=== PATIENT | male | born 1990 | race Caucasian/White ===

== ENCOUNTER 2016-05-12 08:18 | Emergency (ER) | payer BC ==
[2016-05-12 08:34] VITALS: RESP 18; TEMP 98.5
[2016-05-12] MEDS ORDERED: NORMAL SALINE 10 ML SYRINGE FLUSH IVP PRN (08:43)
--- NOTE | 2016-05-12 08:52 | PDOC ---
Headache HPI - General Chief Complaint: General Medical Stated Complaint: Vomiting Date Seen by Provider: 05/12/16 Time Seen by Provider: 08:35 Source: POSITIVE: Patient Exam Limitations: POSITIVE: No limitations Nurse's Notes Reviewed & Considered: Yes - History of Present Illness Initial Comments: The patient is a 25-year-old male who presents to the emergency department with a "migraine headache". He apparently has a long-standing history of migraine headaches which started after he had a thoracic outlet syndrome surgery. He previously was treated by doctors at [place] while he was attending school there. He currently sees a neurologist in [place]. He had Botox injections on May 09. He states that this typically helps him however he usually gets migraines within several days of getting the injections. He states that he had onset of headache in the left mandaeism at approximately 1:30 this morning. This is the typical location for his headaches. He has associated nausea and vomiting and has had emesis 7 since onset of headache. He also has associated photophobia and some blurred vision in the periphery of his left eye. His current headache is typical of migraine headaches that he has had in the past. He denies any numbness or weakness in his extremities, fevers or chills or recent illness. He has taken Zomig and IM Toradol at home already without any relief. He takes propranolol 10 mg twice a day as well as Lexapro daily. In addition he is back on Topamax and is working towards the 100 mg dose and currently is taking 50 mg. - Patient Home Medications Home Medications: Home Medications Diclofenac Potassium [Cambia] 1 packet PO QD PRN 03/29/16 Frovatriptan Succinate [Frova] 1 tab PO BID PRN tab 03/29/16 Zolmitriptan [Zomig] 1 tab PO BID PRN tab 03/29/16 Escitalopram Oxalate [Lexapro] 1 tab PO DAILY tab 04/23/16 Propranolol HCl 1 tab PO BID #60 tab 04/24/16 [place], Disposable [Needle] 1 each MC PRN #30 each 04/26/16 Suvorexant [Belsomra] Sample #4 04/26/16 Syringe, Disposable, 60 ml [Syringe Bulk] 3 ml MC PRN PRN #1 box 04/26/16 Ketorolac Tromethamine [Toradol] 30 mg IJ PRN 04/28/16 Propranolol HCl 10 mg PO BID 04/28/16 Zolpidem Tartrate [Ambien] 1 tab PO QHS #15 tab 04/29/16 - Patient Allergies Allergies/Adverse Reactions: Allergies Allergy/AdvReac Type Severity Reaction Status Date / Time Horse/Equine Containing Allergy Anaphylaxis Verified 05/12/16 08:35 Products cats Allergy Anaphylaxis Uncoded 05/12/16 08:35 Past Medical History - heen HEENT History: Denies History Cardiovascular History: Denies History Respiratory History: Denies History Gastrointestinal History: Denies History Genitourinary History: Denies History Endocrine History: Denies History Musculoskeletal History: Other (please comment) Prosthesis or Implant: Yes Additional Musculoskeletal History: right fib pinning, 1st rib resection Neurological History: Migraines Blood Disorders: Denies History Psychiatric History: Denies History History of Sexually Transmitted Diseases: No Cancer History: Denies History In Past Year Been Physically Harmed or Verbally Threatened: No History of MDRO: No History of Other Communicable Diseases: No Tobacco Use: Never Smoker Alcohol Use: None Substance Use Type: None Previous Surgical History: Yes Type / Date of Surgery: 1st rib resection, right fib pinning Past Medical History Reviewed: Reviewed - No Changes ROS - Limitations ROS Limitations: No Limitations Constitution: DENIES: Chills, Fever Cardiovascular: REPORTS: Denies Cardiac Symptoms Respiratory: REPORTS: Denies Resp Symptoms Neurological: REPORTS: Denies Neuro Symptoms Gastrointestinal: REPORTS: Nausea, Vomitting. DENIES: Abdominal Pain Musculoskeletal: REPORTS: Denies MS Symptoms Eyes: REPORTS: Vision Changes (Decreased vision in the peripheral field of his left eye which is typical for him when he has a migraine) ENT: REPORTS: Denies Symptoms Skin: DENIES: Rash Headache Exam - General Appearance General Appearance: POSITIVE: Alert, Cooperative, No Acute Distress, Other (He is wearing sunglasses in a dark room.) - HEENT Head / Face: POSITIVE: Atraumatic, No Facial Swelling Eyes: POSITIVE: Inspection Normal Ears: POSITIVE: Ears Normal Inspection, TM Normal Inspection Oropharynx: POSITIVE: Pharynx Inspect. Nml, Airway Intact, Voice Normal, Dry Mucous Membranes - Neck Neck: POSITIVE: Normal Inspection - Respiratory / CVS Respiratory / CVS: POSITIVE: No Respiratory Distress, Heart Sounds Normal, Regular Rate/Rhythm, Breath Sounds Normal Peripheral Pulses: Dorsalis-pedis (R): 2+, Dorsalis-pedis (L): 2+ - Abdomen Abdomen: No Distention: (All Quadrants) - Skin Skin: POSITIVE: Intact - Extremities Extremity: Normal ROM: (All Extremities), Normal Inspection: (All Extremities) - Neuro / Psych Higher Functions: POSITIVE: Oriented x3, Normal Speech Cranial Nerves: POSITIVE: Normal As Tested Sensorimotor: POSITIVE: No Motor Deficits, No Sensory Deficits Headache Progress - Results Reviewed by me Lab Results Reviewed: Yes Lab Results:: Laboratory Results 05/12/16 Range/Units 08:53 WBC 6.00 (4.8-10.8) 10^3/uL RBC 4.98 (4.70-6.10) 10^6/uL Hgb 16.8 (14.0-18.0) g/dL Hct 47.5 (42.0-52.0) % MCV 95.4 H (80-90) FL MCH 33.7 H (27-31) PG MCHC 35.4 (33-37) g/dL RDW Std Deviation 42.3 (39-50) fL RDW Coeff of [place]ann[place] 12.4 (11.5-14.5) % Plt Count 323 (140-350) 10*3/uL MPV 8.9 (7.4-12.2) FL Immature Gran % (Auto) 0.2 (0-5) % Neut % (Auto) 46.8 L (50-80) % Lymph % (Auto) 44.3 (10-50) % [place] % (Auto) 7.5 (5-15) % Eos % (Auto) 0.7 (0-8) % Baso % (Auto) 0.5 (0-1) % Immature Gran # (Auto) 0.01 10*3/UL Neut # (Auto) 2.81 10*3/UL Lymph # (Auto) 2.66 10*3/uL [place] # (Auto) 0.45 (0.3-0.8) 10*3/UL Eos # (Auto) 0.04 10*3/UL Baso # (Auto) 0.03 10*3/UL WBC Morphology Comment Normal morphology (NORM) Plt Morphology Comment Normal morphology (NORM) RBC Morph Comment Normal morphology (NORM) Sodium 141 (135-145) meq/L Potassium 4.1 (3.8-5.2) meq/L Chloride 104 (98-112) meq/L Carbon Dioxide 25 (23-33) meq/L Anion Gap 12 (5-20) BUN 11 (7-22) mg/dL Creatinine 1.3 (0.70-1.50) mg/dL Estimated GFR > 60 (>60 ml/min/1.73m(2)) BUN/Creatinine Ratio 8.46 (6-20) Glucose 103 (78-110) mg/dL Calculated Osmolality 290.0 (267-292) mOsm/kg Calcium 9.3 (8.7-10.7) mg/dL Total Bilirubin 1.4 H (0.3-1.2) mg/dL AST 27 (21-57) IU/L ALT 65 (21-72) IU/L Alkaline Phosphatase 72 (38-126) IU/L C-Reactive Protein < 0.5 (0.0-0.9) mg/dL Total Protein 7.5 (6.1-8.0) g/dL Albumin 4.4 (3.5-4.8) g/dL Globulin 3.1 (2.50-4.10) g/dL Albumin/Globulin Ratio 1.40 (1.3-2.0) mg/g - Patient's Progress MDM / ED Course: The patient presents to the emergency department with typical migraine symptoms for him. He states that he has done well with combinations of IV Toradol and Benadryl and some form of anti-medic previously. An IV was established and he received a 1 L bolus of normal saline as well as Toradol 30 mg IV, Benadryl 25 mg IV and Compazine 5 mg IV. His lab work is all essentially normal. Patient care was transferred to Dr. Judge at 15. Patient Care Time - Estimated PCT Patient Care Time (In Minutes): 15 Vital Signs - Recent Vital Signs Vital Signs: Vital Signs (Last 8 hours) Temp Pulse Resp BP Pulse Ox 05/12/16 08:25 98.5 F 74 18 114/71 93 - VS Reviewed Vital Signs Reviewed: Yes Discharge Clinical Impression: Headache Condition: Stable Patient Instructions Given at Discharge: Acute Headache (ED) Additional Instructions: Rest and push fluids. Continue current medications as previously prescribed. Return to the emergency room if worsening headache, vomiting or dehydration, any worsening or change in symptoms. Follow-up with neurology and/or primary care.
[2016-05-12] MEDS: Sodium Chloride 0.9% 1,000 ML PRIMARY IV ONE ×2 (08:53→09:57)
[2016-05-12] MEDS: Prochlorperazine Edisylate Inj 10mg/2ml vial IVP ONE (08:58)
[2016-05-12] MEDS: diphenhydrAMINE 50 MG/1 ML VIAL IVP ONE (09:00)
[2016-05-12 09:04] LABS: BASOPHILS # (AUTO) 0.03 10*3/UL; BASOPHILS % (AUTO) 0.5 % (0-1); EOSINOPHILS % (AUTO) 0.7 % (0-8); HEMATOCRIT 47.5 % (42.0-52.0); HEMOGLOBIN 16.8 g/dL (14.0-18.0); IMM GRAN % (AUTO) 0.2 % (0-5); IMM GRAN# (AUTO) 0.01 10*3/UL; LYMPHOCYTES # (AUTO) 2.66 10*3/uL; LYMPHOCYTES % (AUTO) 44.3 % (10-50); MEAN CORPUSCULAR HEMOGLOBIN 33.7 PG (27-31); MEAN CORPUSCULAR HGB CONC 35.4 g/dL (33-37); MEAN PLATELET VOLUME 8.9 FL (7.4-12.2); MONOCYTES # (AUTO) 0.45 10*3/UL (0.3-0.8); MONOCYTES % (AUTO) 7.5 % (5-15); NEUTROPHILS # (AUTO) 2.81 10*3/UL; NEUTROPHILS % (AUTO) 46.8 % (50-80); RDW COEFFICIENT OF VARIATION 12.4 % (11.5-14.5); RED BLOOD COUNT 4.98 10^6/uL (4.70-6.10)
[2016-05-12 09:05] LABS: PLATELET MORPHOLOGY COMMENT NORMAL MORPHOLOGY (NORM)
[2016-05-12] MEDS: KETOROLAC 30 MG/1 ML VIAL IVP ONE (09:05)
[2016-05-12 09:12] LABS: ASPARTATE AMINO TRANSFERASE 27 IU/L (21-57); BILIRUBIN,TOTAL 1.4 mg/dL (0.3-1.2); BLOOD UREA NITROGEN 11 mg/dL (7-22); BUN/CREATININE RATIO 8.46 (6-20); CALCIUM 9.3 mg/dL (8.7-10.7); CHLORIDE 104 meq/L (98-112); CREATININE 1.3 mg/dL (0.70-1.50); EST GLOMERULAR FILTRATION > 60 (>60 ml/min/1.73m(2)); GLUCOSE 103 mg/dL (78-110); POTASSIUM 4.1 meq/L (3.8-5.2); SODIUM 141 meq/L (135-145); TOTAL PROTEIN 7.5 g/dL (6.1-8.0)
[2016-05-12 09:14] LABS: C-REACTIVE PROTEIN < 0.5 mg/dL (0.0-0.9)
--- NOTE | 2016-05-12 09:51 | PDOC ---
Transfer of Care - Care Accepted Time Care Transferred: 09:20 Report from Transferring Physician Received: Yes MDM / ED Course: I took over care of the patient at the end of Dr. Swapnil Menjivar's shift. Patient with a migraine headache and was recently seen in [place] for Botox injections on May 09, to address his migraine headaches. Patient states that his migraines are often triggered by Botox injections but then subside. He presented to the emergency room this morning with migraine headache, photophobia, and increased fatigue. His pain is presently an 8/10 down from a 10 over 10. He received here in the emergency room normal saline, Toradol, Benadryl, and Compazine. Home Medications: Home Medications Diclofenac Potassium [Cambia] 1 packet PO QD PRN 03/29/16 Frovatriptan Succinate [Frova] 1 tab PO BID PRN tab 03/29/16 Zolmitriptan [Zomig] 1 tab PO BID PRN tab 03/29/16 Escitalopram Oxalate [Lexapro] 1 tab PO DAILY tab 04/23/16 Propranolol HCl 1 tab PO BID #60 tab 04/24/16 [place], Disposable [Needle] 1 each MC PRN #30 each 04/26/16 Suvorexant [Belsomra] Sample #4 04/26/16 Syringe, Disposable, 60 ml [Syringe Bulk] 3 ml MC PRN PRN #1 box 04/26/16 Ketorolac Tromethamine [Toradol] 30 mg IJ PRN 04/28/16 Propranolol HCl 10 mg PO BID 04/28/16 Zolpidem Tartrate [Ambien] 1 tab PO QHS #15 tab 04/29/16 Allergies/Adverse Reactions: Allergies Horse/Equine Containing Products Allergy (Verified 05/12/16 08:35) Anaphylaxis cats Allergy (Uncoded 05/12/16 08:35) Anaphylaxis Vital Signs Reviewed: Yes Nurse's Notes Reviewed & Considered: Yes - Expected Patient Outcome Tentative Impression of Patient: Migraine headache, improving with medical treatment. Expected Disposition: POSITIVE: Home - Re-Evaluation of Patient Re-Examine Time:: 10:41 (patient sleeping and significantly improved.) Disposition of Patient: POSITIVE: Discharged Counseled: POSITIVE: Patient, Family, RE: Lab Results, RE: DX Clinical Impression Documented: Yes (migraine headache.) - Results Reviewed Lab Results Reviewed by Me: Yes Lab Results: Laboratory Results 05/12/16 Range/Units 08:53 WBC 6.00 (4.8-10.8) 10^3/uL RBC 4.98 (4.70-6.10) 10^6/uL Hgb 16.8 (14.0-18.0) g/dL Hct 47.5 (42.0-52.0) % MCV 95.4 H (80-90) FL MCH 33.7 H (27-31) PG MCHC 35.4 (33-37) g/dL RDW Std Deviation 42.3 (39-50) fL RDW Coeff of Jeannette 12.4 (11.5-14.5) % Plt Count 323 (140-350) 10*3/uL MPV 8.9 (7.4-12.2) FL Immature Gran % (Auto) 0.2 (0-5) % Neut % (Auto) 46.8 L (50-80) % Lymph % (Auto) 44.3 (10-50) % [place] % (Auto) 7.5 (5-15) % Eos % (Auto) 0.7 (0-8) % Baso % (Auto) 0.5 (0-1) % Immature Gran # (Auto) 0.01 10*3/UL Neut # (Auto) 2.81 10*3/UL Lymph # (Auto) 2.66 10*3/uL [place] # (Auto) 0.45 (0.3-0.8) 10*3/UL Eos # (Auto) 0.04 10*3/UL Baso # (Auto) 0.03 10*3/UL WBC Morphology Comment Normal morphology (NORM) Plt Morphology Comment Normal morphology (NORM) RBC Morph Comment Normal morphology (NORM) Sodium 141 (135-145) meq/L Potassium 4.1 (3.8-5.2) meq/L Chloride 104 (98-112) meq/L Carbon Dioxide 25 (23-33) meq/L Anion Gap 12 (5-20) BUN 11 (7-22) mg/dL Creatinine 1.3 (0.70-1.50) mg/dL Estimated GFR > 60 (>60 ml/min/1.73m(2)) BUN/Creatinine Ratio 8.46 (6-20) Glucose 103 (78-110) mg/dL Calculated Osmolality 290.0 (267-292) mOsm/kg Calcium 9.3 (8.7-10.7) mg/dL Total Bilirubin 1.4 H (0.3-1.2) mg/dL AST 27 (21-57) IU/L ALT 65 (21-72) IU/L Alkaline Phosphatase 72 (38-126) IU/L C-Reactive Protein < 0.5 (0.0-0.9) mg/dL Total Protein 7.5 (6.1-8.0) g/dL Albumin 4.4 (3.5-4.8) g/dL Globulin 3.1 (2.50-4.10) g/dL Albumin/Globulin Ratio 1.40 (1.3-2.0) mg/g - Consult Recommendations:: Patient is discharged to home, with instructions to follow up with his primary care physician and his neurologist. Patient Care Time - Estimated PCT Patient Care Time (In Minutes): 20 Vital Signs - Recent Vital Signs Vital Signs: Vital Signs (Last 8 hours) Temp Pulse Resp BP Pulse Ox 05/12/16 08:25 98.5 F 74 18 114/71 93 - VS Reviewed Vital Signs Reviewed: Yes Discharge Clinical Impression: Headache Discharge Disposition: Discharged to Home Condition: Stable Patient Instructions Given at Discharge: Acute Headache (ED) Additional Instructions: Rest and push fluids. Continue current medications as previously prescribed. Return to the emergency room if worsening headache, vomiting or dehydration, any worsening or change in symptoms. Follow-up with neurology and/or primary care. Follow Up With: CLIFTON ROBLEDO [Primary Care Provider] -
[2016-05-12] MEDS: DEXAMETHASONE PF 10 MG/1 ML VIAL IV ONE (09:55)
[2016-05-12] MEDS: Magnesium Sulfate 2gm (Premix) 2 GM in Premix 1 BAG IV ONE (09:56)
== END 2016-05-12 10:57 | disposition home or self-care (01) ==
LOC: ER 08:18
DX: R51 Headache (principal); H53.142 Visual discomfort, left eye; R11.2 Nausea with vomiting, unspecified
CPT/HCPCS: 80053; 85025; 86140; 96361; 96365; 96375; 99283 ×2; J1200; J1885; J0780; J1100; J3475; J7030

== ENCOUNTER 2016-05-13 09:53 | Emergency (ER) | payer BC ==
[2016-05-13] MEDS ORDERED: KETOROLAC 30 MG/1 ML VIAL IVP ONE (10:02)
[2016-05-13] MEDS ORDERED: Prochlorperazine Edisylate Inj 10mg/2ml vial IVP ONE (10:02)
[2016-05-13] MEDS ORDERED: Sodium Chloride 0.9% 1,000 ML PRIMARY IV ONE (10:02)
[2016-05-13] MEDS ORDERED: NORMAL SALINE 10 ML SYRINGE FLUSH IVP PRN (10:02)
[2016-05-13] MEDS ORDERED: diphenhydrAMINE 50 MG/1 ML VIAL IVP ONE (10:02)
[2016-05-13] MEDS ORDERED: HYDROmorphone 2 MG/1 ML IVP ONE (10:03)
[2016-05-13 11:33] VITALS: RESP 17; TEMP 97.3
--- NOTE | 2016-05-13 22:22 | PDOC ---
Headache HPI - General Chief Complaint: Headache Stated Complaint: Headache Date Seen by Provider: 05/13/16 Time Seen by Provider: 09:55 Source: POSITIVE: Patient Exam Limitations: POSITIVE: No limitations Nurse's Notes Reviewed & Considered: Yes - History of Present Illness Initial Comments: The patient is a 25-year-old male who presents to the emergency department with continued headache. He has a long-standing history of migraines. He was seen by his neurologist in [place] on the and received Botox injections. He states that in the past this has triggered migraines immediately after the injections and then he usually gets 2-3 months relief. He states that he had onset of headache after his injection and he was evaluated here in the emergency room yesterday. He had blood work that was all unremarkable. He was given medications here consisting of IV Toradol, Compazine and Benadryl. He had relief from a 10 out of 10 down to about an 8 out of 10. He received magnesium infusion and Decadron and his maximum pain relief was down to an 8. He was discharged home however he was unable to rest and had persistent headache which is now worse. He also has had associated vomiting. His headache remains primarily left-sided any does have associated photophobia as well as some blurred vision in the left eye and some slowed speech which is common for him when he has his migraines. His current migraine symptoms are typical of his migraines. He denies fevers or chills, numbness or weakness in extremities or any other associated symptoms. - Patient Home Medications Home Medications: Home Medications Frovatriptan Succinate [Frova] 1 tab PO BID PRN tab 03/29/16 Zolmitriptan [Zomig] 1 tab PO BID PRN tab 03/29/16 Escitalopram Oxalate [Lexapro] 1 tab PO DAILY tab 04/23/16 [place], Disposable [Needle] 1 each MC PRN #30 each 04/26/16 Syringe, Disposable, 60 ml [Syringe Bulk] 3 ml MC PRN PRN #1 box 04/26/16 Ketorolac Tromethamine [Toradol] 30 mg IJ PRN 04/28/16 Propranolol HCl 10 mg PO BID 04/28/16 - Patient Allergies Allergies/Adverse Reactions: Allergies Allergy/AdvReac Type Severity Reaction Status Date / Time Horse/Equine Containing Allergy Anaphylaxis Verified 05/13/16 09:58 Products cats Allergy Anaphylaxis Uncoded 05/13/16 09:58 Past Medical History - heen HEENT History: Denies History Cardiovascular History: Denies History Respiratory History: Denies History Gastrointestinal History: Denies History Genitourinary History: Denies History Endocrine History: Denies History Musculoskeletal History: Other (please comment) Prosthesis or Implant: Yes Additional Musculoskeletal History: right fibula pinning, 1st rib resection Neurological History: Migraines, Other (please comment) Additional Neurological History: THORACIC OUTLET SYNDROME Blood Disorders: Denies History Psychiatric History: Denies History History of Sexually Transmitted Diseases: No Cancer History: Denies History In Past Year Been Physically Harmed or Verbally Threatened: No (PER PATIENT) History of MDRO: No History of Other Communicable Diseases: No Tobacco Use: Never Smoker Alcohol Use: None Substance Use Type: None Previous Surgical History: Yes Type / Date of Surgery: 1st rib resection, right fibula pinning Anesthesia Reactions: No Malignant Hyperthermia: No Family History of Malignant Hyperthermia: No Significant Family History: Other (please comment) Additional Family History: MIGRAINE Past Medical History Reviewed: Reviewed - No Changes ROS - Limitations ROS Limitations: No Limitations Constitution: DENIES: Chills, Fever Cardiovascular: REPORTS: Denies Cardiac Symptoms Respiratory: REPORTS: Denies Resp Symptoms Neurological: REPORTS: Headache. DENIES: Dizziness, Numbness, Weakness Gastrointestinal: REPORTS: Nausea, Vomitting Eyes: REPORTS: Vision Changes (Blurred vision in the left eye and photophobia) ENT: REPORTS: Denies Symptoms Skin: DENIES: Rash Headache Exam - General Appearance General Appearance: POSITIVE: Alert, Cooperative, No Acute Distress - HEENT Head / Face: POSITIVE: Atraumatic, No Facial Swelling Eyes: POSITIVE: Inspection Normal Ears: POSITIVE: Ears Normal Inspection, TM Normal Inspection Nose: POSITIVE: Inspection Normal Oropharynx: POSITIVE: External Inspection Nml, Pharynx Inspect. Nml, Airway Intact, Dry Mucous Membranes - Neck Neck: POSITIVE: Normal Inspection. NEGATIVE: Lymphadenopathy - Respiratory / CVS Respiratory / CVS: POSITIVE: No Respiratory Distress, Heart Sounds Normal, Regular Rate/Rhythm, Breath Sounds Normal Peripheral Pulses: Dorsalis-pedis (R): 2+, Dorsalis-pedis (L): 2+ - Abdomen Abdomen: Soft: (All Quadrants), Denies Tenderness: (All Quadrants), No Distention: (All Quadrants) - Skin Skin: POSITIVE: Intact - Extremities Extremity: Normal ROM: (All Extremities), Normal Inspection: (All Extremities) - Neuro / Psych Higher Functions: POSITIVE: Oriented x3, Normal Speech Cranial Nerves: POSITIVE: Normal As Tested Sensorimotor: POSITIVE: No Motor Deficits, No Sensory Deficits Headache Progress - Patient's Progress MDM / ED Course: An IV was established and the patient received Toradol 30 mg, Compazine 5 mg, Benadryl 25 mg and Dilaudid 1 mg IV. He had significant pain relief in his pain level was down to a 4 out of 10. He stated that he felt he could go home and get some rest. Both he and his mom stated that usually in the past if he is able to get his headache under control after the Botox injection he generally gets 2-3 months relief. He is advised to rest and push fluids. He has home medications including IM Toradol, Zomig and baseline medications that he should continue as previously prescribed. He also has Zofran and Phenergan at home. He is advised return to the emergency room if he develops worsening headache, any worsening or change in symptoms. - Consult Counseled: POSITIVE: Patient, Family, RE: DX, RE: Need for F/U Patient Care Time - Estimated PCT Patient Care Time (In Minutes): 20 Vital Signs - VS Reviewed Vital Signs Reviewed: Yes Discharge Clinical Impression: Headache Condition: Stable Patient Instructions Given at Discharge: Acute Headache (ED) Additional Instructions: Rest and push fluids. Continue Zofran or Phenergan as needed for nausea or vomiting. Continue injectable Toradol as needed for recurrent headache as prescribed. Continue Zomig as prescribed. Return to the emergency room if worsening headache despite home medications, vomiting or dehydration, fever, any worsening or change in symptoms. Recommend follow-up with neurology and primary care. Follow Up With: CLIFTON ROBLEDO [Primary Care Provider] -
== END 2016-05-13 11:50 | disposition home or self-care (01) ==
LOC: ER 09:53
DX: R51 Headache (principal); R11.2 Nausea with vomiting, unspecified; H53.8 Other visual disturbances
CPT/HCPCS: 96361; 96374; 96375; 99282; 99283; J1200; J1885; J0780; J1170; J7030